=== PATIENT | female | born 1985 | race Caucasian/White ===

== ENCOUNTER → 2018-12-30 | Outpatient (CLI) | payer OTHER ==
--- NOTE | 2018-12-30 17:04 | KCIC ---
MRI of the brain without contrast 12/30/2018 Clinical History: Migraine headaches for one year. Technique: Unenhanced T1-weighted sagittal and axial, T2-weighted axial and coronal and FLAIR, gradient echo and diffusion-weighted axial images of the brain were obtained. Findings: The ventricles and sulci are within normal limits in size and configuration. No area of significant abnormal signal intensity is seen involving the brain parenchyma. No extra-axial fluid collection is seen. There is no MRI evidence of acute ischemia/infarction. The paranasal sinuses are essentially clear. Normal flow voids are seen within the major vascular structures surrounding the brain parenchyma. Impression: Negative study. Electronically signed by: Colin Cuevas MD (12/30/2018 5:01 PM) [email or web address]
--- NOTE | 2018-12-30 17:06 | KCIC ---
MRI of the cervical spine without contrast 12/30/2018 CLINICAL HISTORY: Neck pain with left arm numbness. TECHNIQUE: Unenhanced T1-weighted, T2-weighted and inversion recovery sagittal and gradient echo and T2-weighted axial images of the cervical spine were obtained. FINDINGS: Mild lateral curvature of the cervical spine is seen convex to the left. There is straightening of the normal cervical lordosis. Degenerative signal changes are seen involving all of the disks of the cervical spine. The marrow signal of the visualized bony structures is within normal limits. The cervical spinal cord is normal morphology, position, and signal characteristics. On the axial images throughout the cervical disc spaces, very mild degenerative changes are seen consisting of minimal to mild generalized disc bulges and degenerative changes involving the uncovertebral and facet joints. These findings do not result in significant central spinal canal or neural foraminal stenosis at any level. No focal disc herniation is seen. IMPRESSION: Very mild degenerative changes are seen involving cervical spine as discussed above. These findings do not result in significant central spinal canal or neural foraminal stenosis at any level. Electronically signed by: Colin Cuevas MD (12/30/2018 5:04 PM) [email or web address]
--- NOTE | 2018-12-31 08:43 | KCIC ---
Examination: CT CALCIUM SCORING History: Cardiovascular screening. Family history of heart disease. Comparison/Correlation: None Technique: With retrospective electrocardiogram gating axial reconstructed noncontrast images of the chest at the level of the coronary arteries was performed. The upper thorax was not fully included for purposes of this exam. Images were post processed on workstation and calcium score calculated using the modified Agatston Janowitz protocol. Findings: Calcium score Left main coronary artery 0 Left anterior descending artery 0 Left circumflex artery 0 Right coronary artery 0 Total coronary calcium score is 0. Minimal linear scarring or atelectasis involves the right lower lobe. Visualized thorax is unremarkable. IMPRESSION: Total calcium score of 0 is noted. PQRS Compliance Statement: One or more of the following individualized dose reduction techniques were utilized for this examination: 1. Automated exposure control 2. Adjustment of the mA and/or kV according to patient size 3. Use of iterative reconstruction technique Impression: Total coronary calcium score of 0. No coronary artery calcium identified. Very low risk for cardiovascular disease. Correlation clinically is recommended in determining further assessment. PQRS Compliance Statement: One or more of the following individualized dose reduction techniques were utilized for this examination: 1. Automated exposure control 2. Adjustment of the mA and/or kV according to patient size 3. Use of iterative reconstruction technique Electronically signed by: Adolfo Matthews MD (12/31/2018 8:40 AM) [id number]
== END | disposition home or self-care (01) ==
LOC: KCIC MRI 13:53
PROVIDERS: ATTEND Registered Nurse
DX: Z13.6 Encounter for screening for cardiovascular disorders (principal); M47.812 Spondylosis without myelopathy or radiculopathy, cervical region; M50.20 Other cervical disc displacement, unspecified cervical region; M43.8X2 Other specified deforming dorsopathies, cervical region; G43.909 Migraine, unspecified, not intractable, without status migrainosus; Z84.89 Family history of other specified conditions; Z82.49 Family history of ischemic heart disease and other diseases of the circulatory system
CPT/HCPCS: 70551; 72141; 75571

== ENCOUNTER → 2019-12-01 | Outpatient (CLI) | payer OTHER ==
[~2019-12-01] VITALS: Ht 167.6 cm; Wt 56.2 kg
[~2019-12-01] MED LIST: NORMAL SALINE IV ONE; SINCALIDE IV ONE
--- NOTE | 2019-12-01 11:04 | RAD ---
Examination: Hepatobiliary Scan: History: Upper back pain, abdominal cramping. Technique: 5.4 mCi technetium 99m Choletec was administered intravenously and spot views were obtained on the gamma camera for a Nuclear Medicine hepatobiliary scan. 1.1 mcg of CCK drip was administered over 30 minutes and the region of interest was drawn around the gallbladder and gallbladder ejection fraction was calculated. Findings: There is rapid uptake of activity from the blood pool and concentration in the liver. Activity seen in the gallbladder and small bowel. There is a rapid response of the gallbladder to CCK and the gallbladder ejection fraction is 68% which is normal. Impression: Normal hepatobiliary scan. Normal gallbladder function. Electronically signed by: Akash Hawthorne MD (12/01/2019 11:01 AM) [id number]
== END | disposition home or self-care (01) ==
LOC: NM 11:31
PROVIDERS: ATTEND Registered Nurse
DX: R10.9 Unspecified abdominal pain (principal); R19.4 Change in bowel habit; R14.3 Flatulence
CPT/HCPCS: 78227; A9537; J2805